=== PATIENT | male | born 1945 | race Caucasian/White ===

== ENCOUNTER 2018-01-29 04:26 | Observation (INO) ==
--- NOTE | 2018-01-29 04:38 | Emergency Department Note ---
Disposition Clinical Impression: Disequilibrium Disposition: Admitted As Inpatient Condition: Fair Referrals: Katrin Mckinley CNP [Primary Care Provider] - Forms: ED Satisfaction Letter Time of Disposition: 06:49 Dizziness HPI - General Chief Complaint: ED Dizziness Stated Complaint: dizziness Time Seen by Provider: 01/29/18 04:37 Source: patient Mode of arrival: ambulatory Limitations: no limitations Nursing Notes Reviewed: Yes Vital Signs Reviewed: Yes - History of Present Illness HPI Narrative: Patient is a 72-year-old male with past medical history of hypertension, hyperlipidemia, migraine. He presents today due to lightheadedness, disequilibrium. He states that last night prior to bed, he felt off balance. He denies any falls, any chest pain, shortness of breath, nausea, vomiting, fevers, diarrhea, abdominal pain, numbness, tingling, weakness, vision changes. Denies any sensation of the room spinning. He says that when he woke up again around 3 this morning, he felt as though he is off balance and teetering side to side. Again, denies any falls. Denies any history of stroke, any history of [place] or cardiac stents. - Related Data Home Medications Medication Instructions Recorded Confirmed Aspirin Enteric Coated [Aspirin EC] 81 mg PO DAILY 09/20/15 11/25/17 Fluticasone Propionate Nasal 1 spray NS DAILY PRN 09/20/15 11/25/17 [Flonase] Insulin Glargine [Lantus] 30 unit SQ HS 09/20/15 11/25/17 Lisinopril [Zestril] 10 mg PO DAILY 09/20/15 11/25/17 NIFEdipine [Nifedipine Xl] 30 mg PO DAILY 09/20/15 11/25/17 Simvastatin [Zocor] 40 mg PO HS 09/20/15 11/25/17 Tamsulosin [Flomax] 0.4 mg PO DAILY 09/20/15 11/25/17 TraMADol [Ultram] 50 mg PO QID 09/20/15 11/25/17 Ferrous Sulfate [Iron] 325 mg PO DAILY 11/25/17 11/25/17 InFLIXimab [Remicade] 100 mg IVPB Q8W 11/25/17 11/25/17 Insulin LISPRO [Humalog] 0 unit SQ AD 11/25/17 11/25/17 [place]-3/Dha/Epa/Fish Oil [Fish Oil 1 cap PO DAILY 11/25/17 11/25/17 1,000 mg Softgel] hydroCHLOROthiazide 6.25 mg PO DAILY 11/25/17 11/25/17 [Hydrochlorothiazide] Allergies Allergy/AdvReac Type Severity Reaction Status Date / Time azathioprine [From Imuran] AdvReac pancreatiti Verified 09/24/15 02:33 s All systems ED: reviewed and negative except as stated. Constitutional: Denies: fever Cardiovascular: Denies: chest pain Respiratory: Denies: cough, dyspnea Gastrointestinal: Denies: abdominal pain, nausea, vomiting, diarrhea Genitourinary: Denies: urgency, dysuria Musculoskeletal: Denies: back pain, neck pain Integumentary: Denies: rash Neurological: Denies: headache, weakness, numbness, paresthesias Past Medical History - Past Medical History Attestation: Yes The following information was validated with the patient. Source: patient Medical history: Reports: diabetes, GERD, hyperlipidemia, hypertension, migraine , other Surgical history: Reports: cholecystectomy, colectomy Psychiatric history: Reports: no psych history - Social History Smoking Status: Former smoker Smokeless Tobacco Status: No Alcohol use: Reports: none Drug use: Reports: none Physical Exam - General Limitations: no limitations General appearance: alert, in no apparent distress - Head Head exam: atraumatic, normocephalic, normal inspection - Eye Eye exam: Present: normal appearance, PERRL, EOMI - ENT ENT exam: normal exam, normal oropharynx, mucous membranes moist - Neck Neck exam: Present: normal inspection, full ROM, trachea midline - Respiratory Respiratory exam: Present: normal lung sounds bilaterally - Cardiovascular Cardiovascular exam: Present: regular rate, normal rhythm, normal heart sounds - Abdominal Exam Abdominal exam: Present: soft, Non-Tender. Absent: tenderness, distention, guarding, rebound, rigidity - Extremities Exam Extremities exam: Present: normal inspection, full ROM. Absent: tenderness, pedal edema - Neurological Exam Neurological exam: Present: alert, oriented X3, CN II-XII intact. Absent: motor sensory deficit - Psychiatric Psychiatric exam: Present: normal affect, normal mood - Skin Skin exam: Present: warm, dry, intact, normal color Course Course Narrative: Patient was probably tachycardic on presentation. Otherwise, rest of vitals within normal limits. Physical exam was benign. Heart regular rate and rhythm , lungs clear to auscultation, abdomen soft and nontender. No focal neurologic deficits. NIH score is 0. We will obtain basic labs, troponin, and chest x-ray , EKG, CT head for further assessment. 06:48 basic labs within normal limits. Troponin negative. EKG shows no acute ST changes. Chest x-ray negative for any acute cardio pulmonary process. Head CT was negative for any acute intracranial abnormality. Patient still having symptoms of disequilibrium despite meclizine given. Currently concern that patient could have cerebellar infarct that is not showing up on head CT. Discussed admission with the patient for further imaging such as MRI and MRA of the neck. He was agreeable with this plan. Head CT 01/29/18 05:08 IMPRESSION: No acute intracranial abnormality. Generalized atrophy. D/ / Cami Bryan MD / Cami Bryan MD Interpreting Provider: Cami Bryan MD Chest X-Ray 01/29/18 05:14 IMPRESSION: No acute process. D/ / Cami Bryan MD / Cami Bryan MD Interpreting Provider: Cami Bryan MD Vital Signs Temperature 97.4 F L 01/29/18 04:28 Pulse Rate 117 01/29/18 04:28 Respiratory Rate 16 01/29/18 04:28 Blood Pressure 155/79 01/29/18 04:28 O2 Sat by Pulse Oximetry 97 01/29/18 04:28 Temperature 97.4 F L 01/29/18 04:28 Pulse Rate 88 01/29/18 06:00 Respiratory Rate 16 01/29/18 04:28 Blood Pressure 148/74 01/29/18 06:00 O2 Sat by Pulse Oximetry 94 01/29/18 06:00 Oxygen Delivery Oxygen Delivery Room Air Dizziness - MDM Narrative Medical decision making narrative: Patient was probably tachycardic on presentation. Otherwise, rest of vitals within normal limits. Physical exam was benign. Heart regular rate and rhythm , lungs clear to auscultation, abdomen soft and nontender. No focal neurologic deficits. NIH score is 0. We will obtain basic labs, troponin, and chest x-ray , EKG, CT head for further assessment. 06:48 basic labs within normal limits. Troponin negative. EKG shows no acute ST changes. Chest x-ray negative for any acute cardio pulmonary process. Head CT was negative for any acute intracranial abnormality. Patient still having symptoms of disequilibrium despite meclizine given. Currently concern that patient could have cerebellar infarct that is not showing up on head CT. Discussed admission with the patient for further imaging such as MRI and MRA of the neck. He was agreeable with this plan. - Medical Records Medical records reviewed: Yes I reviewed the patient's medical records. - Lab Data Lab results reviewed: Yes I reviewed the patient's lab results. Result diagrams: 01/29/18 05:42 01/29/18 05:42 Lab Results 01/29/18 01/29/18 01/29/18 Range/Units 05:42 05:42 06:35 WBC 6.4 (4.3-11.1) K/mcL RBC 4.43 (4.19-5.50) M/mcL Hgb 13.9 (12.9-16.9) g/dL Hct 41.7 (37.5-50.1) % MCV 94.1 (83.0-100.0) fL MCH 31.4 (28.0-33.3) pg MCHC 33.3 (31.6-35.5) g/dL RDW 12.9 (11.5-14.5) % Plt Count 198 (140-400) K/mcL MPV 9.5 (9.4-12.4) fL Immature Gran % 0.5 (0-4) % Seg Neutrophils % 70.4 % Lymphocytes % 17.2 % Monocytes % 7.2 % Eosinophils % 3.8 % Basophils % 0.9 % Neutrophils # 4.5 (1.6-8.9) K/mcL Lymphocytes # 1.1 (0.6-4.6) K/mcL Monocytes # 0.5 (0.0-1.3) K/mcL Eosinophils # 0.2 (0.0-0.6) K/mcL Basophils # 0.1 (0.0-0.2) K/mcL Sodium 135 L (136-145) mEq/L Potassium 3.9 (3.5-5.1) mEq/L Chloride 103 (98-107) mEq/L Carbon Dioxide 28 (23-29) mEq/L BUN 12 (8-23) mg/dL Creatinine 1.12 (0.70-1.30) mg/dL Est GFR ( Amer) > 60 (> 60) Est GFR (Non-Af Amer) > 60 (> 60) BUN/Creatinine Ratio 11 (6-26) Glucose 211 H (70-105) mg/dL Calculated Osmolality 286 (280-300) Calcium 9.0 (8.6-10.3) mg/dL Total Bilirubin 0.5 (0.3-1.0) mg/dL AST 15 (13-39) Units/L ALT 13 (7-52) Units/L Alkaline Phosphatase 35 (34-104) Units/L Troponin I < 0.03 (< 0.04) ng/mL Serum Total Protein 6.5 (6.4-8.9) g/dL Albumin 3.7 (3.5-5.7) g/dL Globulin 2.8 (2.4-3.5) g/dL Albumin/Globulin Ratio 1.3 (1.1-2.2) Urine Color Yellow (Yellow) Urine Clarity Clear (Clear) Urine pH 7.0 (5.0-8.0) pH Units Ur Specific [place] 1.014 (1.010-1.025) Urine Protein Negative (Neg-Trace) mg/dL Urine Glucose (UA) Normal (Normal) mg/dL Urine Ketones Negative (Negative) mg/dL Urine Blood Negative (Negative) Urine Nitrite Negative (Negative) Urine Bilirubin Negative (Negative) Urine Urobilinogen Normal (Normal) mg/dL Ur Leukocyte Esterase Negative (Negative) Ur Culture Indicated? NO (NO) - Radiology Data Radiology results reviewed: Yes I reviewed the patient's radiology results. Head CT 01/29/18 05:08 IMPRESSION: No acute intracranial abnormality. Generalized atrophy. D/ / Cami Bryan MD / Cami Bryan MD Interpreting Provider: Cami Bryan MD Chest X-Ray 01/29/18 05:14 IMPRESSION: No acute process. D/ / Cami Bryan MD / Cami Bryan MD Interpreting Provider: Cami Bryan MD - EKG Data EKG attestation: Yes I reviewed and interpreted this EKG. EKG results narrative: 01/29/2018 at 04:36. Sinus tachycardia. Rate 106. NE 203. QRS 89. QTC 390. Normal axis. No acute ST elevation or depression. S.B.A.R. - S.B.A.R. Situation: Demographics, MOA Background: Presenting Complaint, Relevant PMH, Meds, & Allergies Assessment: Vital Signs, Course and respsone to treatment, Exam Concerns, Patient/Family Expectation, Pertinant Lab Results Recommendation: Barrier(s) to disposition, Recommendation based on pending studies, treatments, or consults
[2018-01-29 05:59] LABS: Basophils # 0.1 K/mcL (0.0-0.2); Basophils % 0.9 %; Eosinophils # 0.2 K/mcL (0.0-0.6); Eosinophils % 3.8 %; Hematocrit 41.7 % (37.5-50.1); Hemoglobin 13.9 g/dL (12.9-16.9); Immature Granulocytes % 0.5 % (0-4); Lymphocytes # 1.1 K/mcL (0.6-4.6); Lymphocytes % 17.2 %; Mean Corpuscular HGB Conc 33.3 g/dL (31.6-35.5); Mean Corpuscular Hemoglobin 31.4 pg (28.0-33.3); Mean Corpuscular Volume 94.1 fL (83.0-100.0); Mean Platelet Volume 9.5 fL (9.4-12.4); Monocytes # 0.5 K/mcL (0.0-1.3); Monocytes % 7.2 %; Neutrophils # 4.5 K/mcL (1.6-8.9); Platelet Count 198 K/mcL (140-400); Red Blood Count 4.43 M/mcL (4.19-5.50); Red Cell Distribution Width 12.9 % (11.5-14.5); Segmented Neutrophils % 70.4 %
--- NOTE | 2018-01-29 06:15 | Emergency Department Note ---
Disposition Clinical Impression: Disequilibrium Disposition: Admitted As Inpatient Condition: Good General Adult HPI - General Chief complaint: ED Dizziness Stated complaint: dizziness Time Seen by Provider: 01/29/18 04:37 Source: patient Mode of arrival: ambulatory Limitations: no limitations - History of Present Illness Pain Scale: 0 - Related Data Home Medications Medication Instructions Recorded Confirmed Aspirin Enteric Coated [Aspirin EC] 81 mg PO DAILY 09/20/15 01/29/18 Fluticasone Propionate Nasal 1 spray NS DAILY PRN 09/20/15 01/29/18 [Flonase] Insulin Glargine [Lantus] 30 unit SQ HS 09/20/15 01/29/18 NIFEdipine [Nifedipine Xl] 30 mg PO DAILY 09/20/15 01/29/18 Simvastatin [Zocor] 40 mg PO HS 09/20/15 01/29/18 TraMADol [Ultram] 50 mg PO QID 09/20/15 01/29/18 Ferrous Sulfate [Iron] 325 mg PO DAILY 11/25/17 01/29/18 InFLIXimab [Remicade] 100 mg IVPB Q8W 11/25/17 01/29/18 Insulin LISPRO [Humalog] 3 - 7 unit SQ TID PRN 11/25/17 01/29/18 [place]-3/Dha/Epa/Fish Oil [Fish Oil 1 cap PO DAILY 11/25/17 01/29/18 1,000 mg Softgel] hydroCHLOROthiazide 6.25 mg PO DAILY 11/25/17 01/29/18 [Hydrochlorothiazide] Lisinopril [Zestril] 20 mg PO DAILY 01/29/18 01/29/18 Previous Rx's Medication Instructions Recorded Terazosin [Hytrin] 1 mg PO HS #30 capsule 01/30/18 Allergies Allergy/AdvReac Type Severity Reaction Status Date / Time azathioprine [From Imuran] AdvReac pancreatiti Verified 02/25/18 13:19 s Constitutional: Denies: fever Cardiovascular: Denies: chest pain Respiratory: Denies: cough, dyspnea Gastrointestinal: Denies: abdominal pain, nausea, vomiting, diarrhea Genitourinary: Denies: urgency, dysuria Musculoskeletal: Denies: back pain, neck pain Integumentary: Denies: rash Neurological: Denies: headache, weakness, numbness, paresthesias Past Medical History - Past Medical History Medical history: Reports: diabetes, GERD, hyperlipidemia, hypertension, migraine , other Surgical history: Reports: cholecystectomy, colectomy Psychiatric history: Reports: no psych history - Social History Smoking Status: Former smoker Smokeless Tobacco Status: No Alcohol use: Reports: none Drug use: Reports: none Physical Exam - General Limitations: no limitations General appearance: alert, in no apparent distress Course Vital Signs Temperature 97.4 F L 01/29/18 04:28 Pulse Rate 117 01/29/18 04:28 Respiratory Rate 16 01/29/18 04:28 Blood Pressure 155/79 01/29/18 04:28 O2 Sat by Pulse Oximetry 97 01/29/18 04:28 Temperature 98.3 F 01/30/18 07:48 Pulse Rate 82 01/30/18 07:48 Respiratory Rate 16 01/30/18 07:48 Blood Pressure 125/68 01/30/18 07:48 O2 Sat by Pulse Oximetry 95 01/30/18 07:48 Oxygen Delivery Oxygen Delivery Room Air Medical Decision Making - Lab Data Result diagrams: 01/30/18 00:30 01/30/18 00:30 Lab Results 01/29/18 01/29/18 01/29/18 Range/Units 05:42 05:42 06:35 WBC 6.4 (4.3-11.1) K/mcL RBC 4.43 (4.19-5.50) M/mcL Hgb 13.9 (12.9-16.9) g/dL Hct 41.7 (37.5-50.1) % MCV 94.1 (83.0-100.0) fL MCH 31.4 (28.0-33.3) pg MCHC 33.3 (31.6-35.5) g/dL RDW 12.9 (11.5-14.5) % Plt Count 198 (140-400) K/mcL MPV 9.5 (9.4-12.4) fL Immature Gran % 0.5 (0-4) % Seg Neutrophils % 70.4 % Lymphocytes % 17.2 % Monocytes % 7.2 % Eosinophils % 3.8 % Basophils % 0.9 % Neutrophils # 4.5 (1.6-8.9) K/mcL Lymphocytes # 1.1 (0.6-4.6) K/mcL Monocytes # 0.5 (0.0-1.3) K/mcL Eosinophils # 0.2 (0.0-0.6) K/mcL Basophils # 0.1 (0.0-0.2) K/mcL Sodium 135 L (136-145) mEq/L Potassium 3.9 (3.5-5.1) mEq/L Chloride 103 (98-107) mEq/L Carbon Dioxide 28 (23-29) mEq/L BUN 12 (8-23) mg/dL Creatinine 1.12 (0.70-1.30) mg/dL Est GFR ( Amer) > 60 (> 60) Est GFR (Non-Af Amer) > 60 (> 60) BUN/Creatinine Ratio 11 (6-26) Glucose 211 H (70-105) mg/dL Est Mean Plasma Glucose mg/dl Hemoglobin A1c ( - 5.6) % Calculated Osmolality 286 (280-300) Calcium 9.0 (8.6-10.3) mg/dL Total Bilirubin 0.5 (0.3-1.0) mg/dL AST 15 (13-39) Units/L ALT 13 (7-52) Units/L Alkaline Phosphatase 35 (34-104) Units/L Troponin I < 0.03 (< 0.04) ng/mL Serum Total Protein 6.5 (6.4-8.9) g/dL Albumin 3.7 (3.5-5.7) g/dL Globulin 2.8 (2.4-3.5) g/dL Albumin/Globulin Ratio 1.3 (1.1-2.2) Urine Color Yellow (Yellow) Urine Clarity Clear (Clear) Urine pH 7.0 (5.0-8.0) pH Units Ur Specific [place] 1.014 (1.010-1.025) Urine Protein Negative (Neg-Trace) mg/dL Urine Glucose (UA) Normal (Normal) mg/dL Urine Ketones Negative (Negative) mg/dL Urine Blood Negative (Negative) Urine Nitrite Negative (Negative) Urine Bilirubin Negative (Negative) Urine Urobilinogen Normal (Normal) mg/dL Ur Leukocyte Esterase Negative (Negative) Ur Culture Indicated? NO (NO) 01/29/18 01/29/18 Range/Units 10:47 10:47 WBC (4.3-11.1) K/mcL RBC (4.19-5.50) M/mcL Hgb (12.9-16.9) g/dL Hct (37.5-50.1) % MCV (83.0-100.0) fL MCH (28.0-33.3) pg MCHC (31.6-35.5) g/dL RDW (11.5-14.5) % Plt Count (140-400) K/mcL MPV (9.4-12.4) fL Immature Gran % (0-4) % Seg Neutrophils % % Lymphocytes % % Monocytes % % Eosinophils % % Basophils % % Neutrophils # (1.6-8.9) K/mcL Lymphocytes # (0.6-4.6) K/mcL Monocytes # (0.0-1.3) K/mcL Eosinophils # (0.0-0.6) K/mcL Basophils # (0.0-0.2) K/mcL Sodium (136-145) mEq/L Potassium (3.5-5.1) mEq/L Chloride (98-107) mEq/L Carbon Dioxide (23-29) mEq/L BUN (8-23) mg/dL Creatinine (0.70-1.30) mg/dL Est GFR ( Amer) (> 60) Est GFR (Non-Af Amer) (> 60) BUN/Creatinine Ratio (6-26) Glucose (70-105) mg/dL Est Mean Plasma Glucose 180 mg/dl Hemoglobin A1c 7.9 H ( - 5.6) % Calculated Osmolality (280-300) Calcium (8.6-10.3) mg/dL Total Bilirubin (0.3-1.0) mg/dL AST (13-39) Units/L ALT (7-52) Units/L Alkaline Phosphatase (34-104) Units/L Troponin I < 0.03 (< 0.04) ng/mL Serum Total Protein (6.4-8.9) g/dL Albumin (3.5-5.7) g/dL Globulin (2.4-3.5) g/dL Albumin/Globulin Ratio (1.1-2.2) Urine Color (Yellow) Urine Clarity (Clear) Urine pH (5.0-8.0) pH Units Ur Specific [place] (1.010-1.025) Urine Protein (Neg-Trace) mg/dL Urine Glucose (UA) (Normal) mg/dL Urine Ketones (Negative) mg/dL Urine Blood (Negative) Urine Nitrite (Negative) Urine Bilirubin (Negative) Urine Urobilinogen (Normal) mg/dL Ur Leukocyte Esterase (Negative) Ur Culture Indicated? (NO) Attestation Statement - Attestation Attestation: I examined this patient and my medical decision-making was reviewed with the Resident Physician. I agree with the documented findings, disposition and treatment plan as described except to the extent set forth below. Findings consistent with dizziness. Findings could represent posterior infarct. Will admit for MRI and further management as well as medical maximization to rule out CVA.
[2018-01-29 06:24] LABS: Alanine Aminotransferase 13 Units/L (7-52); Albumin 3.7 g/dL (3.5-5.7); Albumin/Globulin Ratio 1.3 (1.1-2.2); Alkaline Phosphatase 35 Units/L (34-104); Aspartate Amino Transferase 15 Units/L (13-39); BUN/Creatinine Ratio 11 (6-26); Bilirubin,Total 0.5 mg/dL (0.3-1.0); Blood Urea Nitrogen 12 mg/dL (8-23); Carbon Dioxide 28 mEq/L (23-29); Chloride 103 mEq/L (98-107); Globulin 2.8 g/dL (2.4-3.5); Glucose 211 mg/dL (70-105); Osmolality,Calculated 286 (280-300); Potassium 3.9 mEq/L (3.5-5.1); Sodium 135 mEq/L (136-145); Total Protein 6.5 g/dL (6.4-8.9); Troponin I < 0.03 ng/mL (< 0.04); eGFR For African Americans > 60 (> 60); eGFR For Non-African Americans > 60 (> 60)
[2018-01-29 06:45] LABS: Bilirubin,Urine Negative (Negative); Blood,Urine Negative (Negative); Clarity,Urine Clear (Clear); Color,Urine Yellow (Yellow); Glucose,Urine (UA) Normal (Normal); Ketones,Urine Negative (Negative); Leukocyte Esterase,Urine Negative (Negative); Nitrite,Urine Negative (Negative); Protein,Urine Negative (Neg-Trace); Specific Gravity,Urine 1.014 (1.010-1.025); Urobilinogen,Urine Normal (Normal)
[2018-01-29] MEDS ORDERED: Aspirin 325 MG TABLET PO ONE (06:46)
--- NOTE | 2018-01-29 07:44 | Emergency Department Note ---
Disposition Clinical Impression: Disequilibrium Disposition: Admitted As Inpatient Condition: Fair Referrals: Katrin Mckinley CNP [Primary Care Provider] - Forms: ED Satisfaction Letter General Adult HPI - General Chief complaint: ED Dizziness Stated complaint: dizziness Time Seen by Provider: 01/29/18 04:37 Source: patient Mode of arrival: ambulatory Limitations: no limitations - History of Present Illness Pain Scale: 0 - Related Data Home Medications Medication Instructions Recorded Confirmed Aspirin Enteric Coated [Aspirin EC] 81 mg PO DAILY 09/20/15 11/25/17 Fluticasone Propionate Nasal 1 spray NS DAILY PRN 09/20/15 11/25/17 [Flonase] Insulin Glargine [Lantus] 30 unit SQ HS 09/20/15 11/25/17 Lisinopril [Zestril] 10 mg PO DAILY 09/20/15 11/25/17 NIFEdipine [Nifedipine Xl] 30 mg PO DAILY 09/20/15 11/25/17 Simvastatin [Zocor] 40 mg PO HS 09/20/15 11/25/17 Tamsulosin [Flomax] 0.4 mg PO DAILY 09/20/15 11/25/17 TraMADol [Ultram] 50 mg PO QID 09/20/15 11/25/17 Ferrous Sulfate [Iron] 325 mg PO DAILY 11/25/17 11/25/17 InFLIXimab [Remicade] 100 mg IVPB Q8W 11/25/17 11/25/17 Insulin LISPRO [Humalog] 0 unit SQ AD 11/25/17 11/25/17 [place]-3/Dha/Epa/Fish Oil [Fish Oil 1 cap PO DAILY 11/25/17 11/25/17 1,000 mg Softgel] hydroCHLOROthiazide 6.25 mg PO DAILY 11/25/17 11/25/17 [Hydrochlorothiazide] Allergies Allergy/AdvReac Type Severity Reaction Status Date / Time azathioprine [From Imuran] AdvReac pancreatiti Verified 09/24/15 02:33 s Constitutional: Denies: fever Cardiovascular: Denies: chest pain Respiratory: Denies: cough, dyspnea Gastrointestinal: Denies: abdominal pain, nausea, vomiting, diarrhea Genitourinary: Denies: urgency, dysuria Musculoskeletal: Denies: back pain, neck pain Integumentary: Denies: rash Neurological: Denies: headache, weakness, numbness, paresthesias Past Medical History - Past Medical History Medical history: Reports: diabetes, GERD, hyperlipidemia, hypertension, migraine , other Surgical history: Reports: cholecystectomy, colectomy Psychiatric history: Reports: no psych history - Social History Smoking Status: Former smoker Smokeless Tobacco Status: No Alcohol use: Reports: none Drug use: Reports: none Physical Exam - General Limitations: no limitations General appearance: alert, in no apparent distress Course Vital Signs Temperature 97.4 F L 01/29/18 04:28 Pulse Rate 117 01/29/18 04:28 Respiratory Rate 16 01/29/18 04:28 Blood Pressure 155/79 01/29/18 04:28 O2 Sat by Pulse Oximetry 97 01/29/18 04:28 Temperature 97.4 F L 01/29/18 04:28 Pulse Rate 88 01/29/18 06:00 Respiratory Rate 16 01/29/18 04:28 Blood Pressure 148/74 01/29/18 06:00 O2 Sat by Pulse Oximetry 94 01/29/18 06:00 Oxygen Delivery Oxygen Delivery Room Air Medical Decision Making - Lab Data Result diagrams: 01/29/18 05:42 01/29/18 05:42 Lab Results 01/29/18 01/29/18 01/29/18 Range/Units 05:42 05:42 06:35 WBC 6.4 (4.3-11.1) K/mcL RBC 4.43 (4.19-5.50) M/mcL Hgb 13.9 (12.9-16.9) g/dL Hct 41.7 (37.5-50.1) % MCV 94.1 (83.0-100.0) fL MCH 31.4 (28.0-33.3) pg MCHC 33.3 (31.6-35.5) g/dL RDW 12.9 (11.5-14.5) % Plt Count 198 (140-400) K/mcL MPV 9.5 (9.4-12.4) fL Immature Gran % 0.5 (0-4) % Seg Neutrophils % 70.4 % Lymphocytes % 17.2 % Monocytes % 7.2 % Eosinophils % 3.8 % Basophils % 0.9 % Neutrophils # 4.5 (1.6-8.9) K/mcL Lymphocytes # 1.1 (0.6-4.6) K/mcL Monocytes # 0.5 (0.0-1.3) K/mcL Eosinophils # 0.2 (0.0-0.6) K/mcL Basophils # 0.1 (0.0-0.2) K/mcL Sodium 135 L (136-145) mEq/L Potassium 3.9 (3.5-5.1) mEq/L Chloride 103 (98-107) mEq/L Carbon Dioxide 28 (23-29) mEq/L BUN 12 (8-23) mg/dL Creatinine 1.12 (0.70-1.30) mg/dL Est GFR ( Amer) > 60 (> 60) Est GFR (Non-Af Amer) > 60 (> 60) BUN/Creatinine Ratio 11 (6-26) Glucose 211 H (70-105) mg/dL Calculated Osmolality 286 (280-300) Calcium 9.0 (8.6-10.3) mg/dL Total Bilirubin 0.5 (0.3-1.0) mg/dL AST 15 (13-39) Units/L ALT 13 (7-52) Units/L Alkaline Phosphatase 35 (34-104) Units/L Troponin I < 0.03 (< 0.04) ng/mL Serum Total Protein 6.5 (6.4-8.9) g/dL Albumin 3.7 (3.5-5.7) g/dL Globulin 2.8 (2.4-3.5) g/dL Albumin/Globulin Ratio 1.3 (1.1-2.2) Urine Color Yellow (Yellow) Urine Clarity Clear (Clear) Urine pH 7.0 (5.0-8.0) pH Units Ur Specific [place] 1.014 (1.010-1.025) Urine Protein Negative (Neg-Trace) mg/dL Urine Glucose (UA) Normal (Normal) mg/dL Urine Ketones Negative (Negative) mg/dL Urine Blood Negative (Negative) Urine Nitrite Negative (Negative) Urine Bilirubin Negative (Negative) Urine Urobilinogen Normal (Normal) mg/dL Ur Leukocyte Esterase Negative (Negative) Ur Culture Indicated? NO (NO) Attestation Statement - Attestation Attestation: Care assumed from Dr. Deras at 7 AM pending discussion with the hospitalist for admission. The patient presented with dizziness. I did review the transcribed report of his head CT as well as the labs. He is resting cuff with a tyloma examined complains of ongoing dizziness but appears in no acute distress. The hospitalist accepts for admission
[2018-01-29] MEDS ORDERED: Naloxone 0.4 MG/ML INJ IVP PRN (10:31)
[2018-01-29] MEDS ORDERED: *HR* Dextrose 50 % in Water (Syg) 50 ML SYRINGE IVP PRN (10:31)
[2018-01-29] MEDS ORDERED: Dextrose Gel 15 GM/37.5 ML TUBE PO PRN ×2 (10:31)
[2018-01-29] MEDS ORDERED: D5% in Water 1,000 ML IVC PRN (10:31)
[2018-01-29] MEDS: 0.9 % Sodium Chloride 1,000 ML IVC SCH ×2 (11:35→22:55)
[2018-01-29] MEDS: NIFEdipine XL (24 HR) 30 MG TAB.ER.24 PO SCH (12:23)
[2018-01-29] MEDS: Lisinopril 20 MG TABLET PO SCH (12:23)
[2018-01-29] MEDS: Insulin LISPRO 300 UNITS/3 ML VIAL SQ SCH ×3 (12:36→23:24)
--- NOTE | 2018-01-29 14:57 | Internal Med History&Physical ---
Date of Encounter: 01/29/18 Time of Encounter: 09:15 Internal Medicine - H&P: HPI Chief complaint: Chief complaint of dizziness Admitted From: Home History of present illness: Mr. Ramirez is a 72 year old male has medical history of Crohn's disease and colitis, hyperlipidemia, hypertension, migraine headaches who presented to the emergency room with history of sudden onset lightheadedness which he started noticing about 2 days prior to arrival. He states that the lightheadedness has since progressed and is so severe that he is afraid of getting up and walking. He noticed that suddenly getting up from a sitting position does make him more dizzy and that he has to hold onto things while walking because now he is swaying from [id number]. He denies any fevers or chills or any sick contacts and recent times. Has any nausea or vomiting or poor hydration. He states that over the last several months his exercise tolerance has decreased a little bit but not to a significant concerning degree. He is unaware of any new medications that have been started over the last few weeks. He denies any tingling or numbness or weakness or vision changes of any sort. He denies any sensation of room spinning Does complain of mild headache rated at 2/10 bifrontally without any radiation and without any associated aggravating or relieving factors Past Med Surg Social Fam HX - Past Medical History Medical history: diabetes, GERD, hyperlipidemia, hypertension, other Psychiatric history: no psych history - Past Surgical History Surgical History: cholecystectomy, colectomy - Social History Smoking Status: Former smoker Smokeless Tobacco Status: No Alcohol use: none Drug use: none - Family History Mother Adopted: No Hx Family Cardiac Disorders: No Hx Family Respiratory Disorders: No Hx Family Cancer: No - Additional Family History Additional family history: Complete family history of an acquired and is negative Internal Medicine - H&P: Meds Aspirin Enteric Coated [Aspirin EC] 81 mg PO DAILY 09/20/15 [History] Fluticasone Propionate Nasal [Flonase] 1 spray NS DAILY PRN 09/20/15 [History] Insulin Glargine [Lantus] 30 unit SQ HS 09/20/15 [History] NIFEdipine [Nifedipine Xl] 30 mg PO DAILY 09/20/15 [History] Simvastatin [Zocor] 40 mg PO HS 09/20/15 [History] TraMADol [Ultram] 50 mg PO QID 12/08/15 [History] Ferrous Sulfate [Iron] 325 mg PO DAILY 11/25/17 [History] InFLIXimab [Remicade] 100 mg IVPB Q8W 11/25/17 [History] Insulin LISPRO [Humalog] 3 - 7 unit SQ TID PRN 11/25/17 [History] Jansen-3/Dha/Epa/Fish Oil [Fish Oil 1,000 mg Softgel] 1 cap PO DAILY 11/25/17 [ History] hydroCHLOROthiazide [Hydrochlorothiazide] 6.25 mg PO DAILY 11/25/17 [History] Lisinopril [Zestril] 20 mg PO DAILY 01/29/18 [History] Terazosin HCl 2 mg PO DAILY 01/29/18 [History] 3 Allergy/AdvReac Type Severity Reaction Status Date / Time azathioprine [From Imuran] AdvReac pancreatiti Verified 09/24/15 02:33 s All Systems PM: A 10-system review of systems was performed and is negative for pertinent findings except as documented above in the HPI. - Constitutional Vitals: Temp Pulse Resp BP Pulse Ox 97.8 F 97 18 144/77 97 01/29/18 12:28 01/29/18 12:28 01/29/18 12:28 01/29/18 12:28 01/29/18 12:28 General appearance: Present: mild distress Exam: GENERAL: Alert, moderate distress, cooperative EYES: PERRLA, EOMI EARS: External ears normal, canals clear OROPHARYNX: Lips, mucosa, and tongue normal. Teeth and gums normal. Oropharynx normal. NECK: No jugulovenous distention, No carotid bruits, Carotid pulse normal contour, Supple LUNGS: Lungs clear to auscultation, Good diaphragmatic excursion CARDIAC: Normal S1 and S2; no rubs, murmurs, or gallops ABDOMEN: Abdomen soft, non-tender, BS normal, No masses or organomegaly EXTREMITIES: Extremities normal, no deformities, edema, clubbing or skin discoloration. Good capillary refill., No ulcers NEURO: Gait could not be tested because the patient was significantly symptomatic upon standing up from a lying down position. Reflexes normal and symmetric. Sensation grossly intact, Cranial nerves II-XII intact PULSES: 2+ radial, 2+ carotid Rest of the exam is non contributory Internal Med - H&P Results - Labs CBC & Chem 7: 01/29/18 05:42 01/29/18 05:42 - Assessment and plan (1) Orthostatic dizziness Current Visit: Yes Status: Acute Assessment and plan: Patient was positive for orthostatic hypotension clinically. He could not tolerate standing up for brief seconds and was visibly very dizzy Check orthostatic vitals serially while on the floor. I will give him IV fluids for gentle hydration and follow along. Wondering if his medications are responsible for his ongoing symptoms. Notably , he is on diuresis, tramadol and Terazosin when I look upon his admission medication reconciliation for various complaints . I am going to hold all 3 of them for now until we get his workup going .his CBC does not indicate anemia and he has been taking iron supplements. He also denies ongoing GI bleed issues and follows up very closely with his outpatient providers for his Crohn' s colitis. A CT scan of the head is negative for an acute intracranial bleed. I will check an MRI brain to rule out acute posterior circulation CVA. Placed on telemetry monitoring while on the floor. continue aspirin for the meantime. An EKG was reviewed and he was sinus tachycardic and troponin's were negative (2) DJD (degenerative joint disease) of cervical spine Current Visit: Yes Status: Acute Assessment and plan: Chronic degenerative joint disease. Continue NSAIDs for symptom control for pain. Outpatient physical therapy will be needed upon discharge .avoid opiates and will use muscle relaxants extremely cautiously given his presentation with orthostatic dizziness Qualifiers: Spinal osteoarthritis complication: without myelopathy or radiculopathy Qualified Code(s): M47.812 - Spondylosis without myelopathy or radiculopathy, cervical region (3) HTN, goal below 130/80 Current Visit: Yes Status: Acute Assessment and plan: Blood pressure seems to be stable at this point will continue home medications except for diuresis and continue to monitor closely In fact, clinically he is behaving orthostatic hypotensive. I will put her in formal orthostatic vitals to be checked on the floor (4) Crohn disease Current Visit: Yes Status: Acute Assessment and plan: Stable and does not have active symptoms at this point. Continue to monitor while in-house. He is not anemic Qualifiers: Gastrointestinal tract location: unspecified location Digestive disease complication type: without complication Qualified Code(s): K50.90 - Crohn's disease, unspecified, without complications - Time Spent With Patient Total time spent is greater than 50% in coordination of care (as documented) at patient's floor/unit and/or counseling patient:
[2018-01-29 19:51] LABS: Estimated Average Glucose 180 mg/dl; Hemoglobin A1C 7.9 %
[2018-01-29] MEDS ORDERED: Insulin DETEMIR 100 UNIT/ML X5UNITS SQ SCH (21:00)
[2018-01-30 00:50] LABS: Basophils # 0.1 K/mcL (0.0-0.2); Basophils % 0.7 %; Eosinophils # 0.4 K/mcL (0.0-0.6); Eosinophils % 4.6 %; Hematocrit 38.7 % (37.5-50.1); Hemoglobin 13.1 g/dL (12.9-16.9); Immature Granulocytes % 0.5 % (0-4); Lymphocytes # 1.9 K/mcL (0.6-4.6); Lymphocytes % 23.2 %; Mean Corpuscular HGB Conc 33.9 g/dL (31.6-35.5); Mean Corpuscular Hemoglobin 31.5 pg (28.0-33.3); Mean Platelet Volume 9.5 fL (9.4-12.4); Monocytes # 0.7 K/mcL (0.0-1.3); Monocytes % 8.5 %; Platelet Count 206 K/mcL (140-400); Red Blood Count 4.16 M/mcL (4.19-5.50); Segmented Neutrophils % 62.5 %
[2018-01-30 01:09] LABS: BUN/Creatinine Ratio 11 (6-26); Blood Urea Nitrogen 13 mg/dL (8-23); Calcium 8.5 mg/dL (8.6-10.3); Carbon Dioxide 23 mEq/L (23-29); Chloride 106 mEq/L (98-107); Glucose 207 mg/dL (70-105); Osmolality,Calculated 284 (280-300); Sodium 134 mEq/L (136-145); eGFR For African Americans > 60 (> 60); eGFR For Non-African Americans 60 (> 60)
[2018-01-30] MEDS: Insulin LISPRO 300 UNITS/3 ML VIAL SQ SCH (05:41)
[2018-01-30 07:48] VITALS: BP 125/68
[2018-01-30] MEDS ORDERED: (Omega-3/Dha/Epa/Fish Oil [Fish Oil 1,000 Mg Softgel]) PO SCH (09:00)
[2018-01-30] MEDS ORDERED: Aspirin Enteric Coated 81 MG Tablet PO SCH (09:00)
[2018-01-30] MEDS: Lisinopril 20 MG TABLET PO SCH (09:06)
[2018-01-30] MEDS: NIFEdipine XL (24 HR) 30 MG TAB.ER.24 PO SCH (09:08)
--- NOTE | 2018-01-30 11:21 | Discharge Summary ---
- NOTES TO OUTPATIENT PROVIDER Notes to Outpatient Provider: Patient hospitalized with orthostatic dizziness. Likely due to medications especially terazosin. Recommended decreasing dosage of terazosin. Follow up as outpatient with PCP Date of Encounter: 01/30/18 Time of Encounter: 11:18 - Discharge Diagnosis (1) Orthostatic dizziness Priority: Primary Status: Resolved (2) DJD (degenerative joint disease) of cervical spine Priority: Secondary Status: Acute Qualifiers: Spinal osteoarthritis complication: without myelopathy or radiculopathy Qualified Code(s): M47.812 - Spondylosis without myelopathy or radiculopathy, cervical region (3) HTN, goal below 130/80 Priority: Secondary Status: Acute (4) Crohn disease Priority: Secondary Status: Acute Qualifiers: Gastrointestinal tract location: unspecified location Digestive disease complication type: without complication Qualified Code(s): K50.90 - Crohn's disease, unspecified, without complications Hospital course: Mr. Ramirez is a 72 year old male patient with history of Crohn's disease, hypertension, hyperlipidemia and migraine headaches who was hospitalized here with presyncopal symptoms. He had been started on Terazosin earlier this month. He did not have any focal weakness. She was diagnosed with orthostatic dizziness. He was monitored overnight in the hospital. His symptoms resolved completely after his blood pressure medications were held. He is now doing much better and is stable to go home. His symptoms were most likely related to use of Terazosin as this is the only recent medication change. I recommend decreasing the dose of this medication. He has also been advised about further recommendations to help prevent postural hypotension. He understands this condition and will follow up with his primary care provider for further management. Discharge discussed with: patient, family - Time Spent with Patient Total time spent providing and/or coordinating discharge services: Less than 30 minutes (25 min) - Discharge Medications Prescriptions: Terazosin [Hytrin] 1 mg PO HS #30 capsule Home Medications: Aspirin Enteric Coated [Aspirin EC] 81 mg PO DAILY 09/20/15 [History] Fluticasone Propionate Nasal [Flonase] 1 spray NS DAILY PRN 09/20/15 [History] Insulin Glargine [Lantus] 30 unit SQ HS 09/20/15 [History] NIFEdipine [Nifedipine Xl] 30 mg PO DAILY 09/20/15 [History] Simvastatin [Zocor] 40 mg PO HS 09/20/15 [History] TraMADol [Ultram] 50 mg PO QID 09/20/15 [History] Ferrous Sulfate [Iron] 325 mg PO DAILY 11/25/17 [History] InFLIXimab [Remicade] 100 mg IVPB Q8W 11/25/17 [History] Insulin LISPRO [Humalog] 3 - 7 unit SQ TID PRN 11/25/17 [History] [facility]-3/Dha/Epa/Fish Oil [Fish Oil 1,000 mg Softgel] 1 cap PO DAILY 11/25/17 [ History] hydroCHLOROthiazide [Hydrochlorothiazide] 6.25 mg PO DAILY 11/25/17 [History] Lisinopril [Zestril] 20 mg PO DAILY 01/29/18 [History] Terazosin [Hytrin] 1 mg PO HS #30 capsule 01/30/18 [Rx] Allergies/Adverse Reactions: 3 Allergy/AdvReac Type Severity Reaction Status Date / Time azathioprine [From Imuran] AdvReac pancreatiti Verified 09/24/15 02:33 s Date of admission: 01/29/18 11:30 Primary care physician: Katrin Mckinley CNP Consults: 01/30/18 08:08 Consult to Occupational Therapy [CONS] Routine Comment: Evaluate, develop and implement POC Reason for Consult: DIzziness/ weakness Does patient have active BEDREST order?: No Is patient medically & hemodynamically stable?: Yes Consult to Physical Therapy [CONS] Routine Comment: Evaluate, develop and implement POC Reason for Consult: DIzziness/ weakness Does patient have active BEDREST order?: No Is patient medically & hemodynamically stable?: Yes Discharging clinician: Joaquin Dobbs Anticipated date of discharge: 01/30/18 - Constitutional Vitals: Temp Pulse Resp BP Pulse Ox 98.3 F 82 16 125/68 95 01/30/18 07:48 01/30/18 07:48 01/30/18 07:48 01/30/18 07:48 01/30/18 07:48 General appearance: Present: cooperative, A&O X 3, answers questions appropriately - Neck Neck exam general surgery: Present: supple, trachea midline. Absent: lymphadenopathy - Respiratory Respiratory exam: Present: CTAB. Absent: accessory muscle use, rales, rhonchi, wheezes - Cardiovascular Cardiovascular exam: Present: RRR, +S1, +S2. Absent: diastolic murmur, gallop, rubs, systolic murmur - GI/Abdominal GI/Abdominal exam: Present: normal bowel sounds, soft, no peritoneal signs. Absent: distended, tenderness - Extremities Exam Extremities exam: Present: warm, radial pulses palpable and symmetrical. Absent : calf tenderness, cyanotic, pedal edema - Neurological Exam Neurological exam: Present: CN II-XII intact, oriented X3, no focal deficits. Absent: facial droop, speech deficit - Skin Skin exam: Present: dry, intact - Patient Status Disposition: Home, Self-Care Condition: Good Functional capacity at discharge: independent ambulation Overall status at discharge: patient is progressing back to baseline - Discharge Instructions Follow Up With: Katrin Mckinley CNP [Primary Care Provider] - 02/04/18 10:00 am (in 1-2 weeks) Additional Instructions: Stand up slowly and give your body time to adapt. This is especially important when you get out of bed in the morning. Start by sitting up and waiting a moment. Then swing your legs over the side of the bed and wait some more. When you do stand up, make sure you have something to hold onto in case you start to feel dizzy. Avoid running, hiking, or doing anything that takes a lot of energy in hot weather. These things can make orthostatic hypotension worse. Make sure you drink enough fluids, especially in hot weather. Put blocks under the posts at the head of your bed. This will raise your head above your heart slightly. Wear "compression" stockings. The ones that go to your waist are most helpful. - Diet and Activity Activity: increase activity as tolerated Diet: diabetic diet, low fat, low cholesterol, low salt diet
--- NOTE | 2018-01-31 15:39 | Electrocardiograph Report ---
[place] [id number] Test Date: 2018-01-29 Pat Name: Dieter Ramirez Department: 104 Room: [facility] Gender: M Distribution System Operator: KALEB : 1945 Requested By: Ever Deras Order Number: [id number] Reading MD: Sae Kirkpatrick Measurements Intervals [place] Rate: 106 P: 49 MN: 203 QRS: 23 QRSD: 89 T: 61 QT: 328 QTc: 390 Interpretive Statements SINUS TACHYCARDIA POSSIBLE ANTERIOR MYOCARDIAL INFARCTION, PROBABLY OLD Electronically Signed On 01-31-2018 15:37:16 EDT by Sae Kirkpatrick
== END 2018-01-30 11:50 | disposition home or self-care (01) ==
LOC: SUATTDRO → 2SOUTHHOLD 04:26 → EMEROO 04:26 → 3NENU 11:54
PROVIDERS: ADMIT Internal Medicine; ATTEND Family Medicine

== ENCOUNTER 2019-09-08 07:44 | Observation (INO) ==
[2019-09-08] MEDS ORDERED: 0.9 % Sodium Chloride 1,000 ML IVC ONE (08:07)
[2019-09-08] MEDS ORDERED: Isovue-370 500 ML BOTTLE IVP ONE (08:07)
[2019-09-08] MEDS ORDERED: Ondansetron 4 MG/2 ML VIAL IVP ONE (08:07)
[2019-09-08] MEDS ORDERED: *HR* FentaNYL (PF) 100 MCG/2 ML VIAL IVP ONE (08:07)
[2019-09-08 08:33] LABS: Basophils % 0.4 %; Eosinophils % 0.1 %; Hematocrit 47.7 % (37.5-50.1); Hemoglobin 16.3 g/dL (12.9-16.9); Immature Granulocytes % 0.6 % (0-4); Lymphocytes # 1.2 K/mcL (0.6-4.6); Lymphocytes % 11.1 %; Mean Corpuscular HGB Conc 34.2 g/dL (31.6-35.5); Mean Corpuscular Hemoglobin 31.6 pg (28.0-33.3); Mean Corpuscular Volume 92.4 fL (83.0-100.0); Mean Platelet Volume 9.5 fL (9.4-12.4); Monocytes # 0.6 K/mcL (0.0-1.3); Monocytes % 5.4 %; Neutrophils # 9.1 K/mcL (1.6-8.9); Platelet Count 319 K/mcL (140-400); Red Blood Count 5.16 M/mcL (4.19-5.50); Red Cell Distribution Width 13.3 % (11.5-14.5); Segmented Neutrophils % 82.4 %
[2019-09-08 08:41] LABS: Bilirubin,Urine Negative (Negative); Blood,Urine Negative (Negative); Color,Urine Yellow (Yellow); Glucose,Urine (UA) 100 mg/dL (Normal); Ketones,Urine Trace mg/dL (Negative); Leukocyte Esterase,Urine Negative (Negative); Nitrite,Urine Negative (Negative); Protein,Urine Negative (Neg-Trace); Specific Gravity,Urine 1.017 (1.010-1.025); Urobilinogen,Urine Normal (Normal)
[2019-09-08 08:46] LABS: Bacteria,Urine None Seen per hpf (None-Few); Clarity,Urine Slightly Cloudy (Clear); Hyaline Casts,Urine None Seen per lpf (None-Few); Squamous Epithelial Cell,Urine Few per lpf (None-Few); WBC,Urine 0-3 per hpf (0-3)
[2019-09-08 08:54] LABS: Alanine Aminotransferase 11 Units/L (7-52); Albumin 3.7 g/dL (3.5-5.7); Albumin/Globulin Ratio 1.1 (1.1-2.2); Alkaline Phosphatase 39 Units/L (34-104); Aspartate Amino Transferase 12 Units/L (13-39); BUN/Creatinine Ratio 10 (6-26); Bilirubin,Direct 0.1 mg/dL (0.0-0.2); Bilirubin,Indirect 0.5 mg/dL (0.0-1.0); Bilirubin,Total 0.6 mg/dL (0.3-1.0); Blood Urea Nitrogen 14 mg/dL (8-23); Calcium 9.3 mg/dL (8.6-10.3); Carbon Dioxide 24 mEq/L (23-29); Chloride 100 mEq/L (98-107); Globulin 3.5 g/dL (2.4-3.5); Glucose 296 mg/dL (70-105); Lipase 16 Units/L (11-82); Osmolality,Calculated 289 (280-300); Potassium 4.6 mEq/L (3.5-5.1); Sodium 134 mEq/L (136-145); Total Protein 7.2 g/dL (6.4-8.9); eGFR For African Americans > 60 (> 60); eGFR For Non-African Americans 51 (> 60)
[2019-09-08] MEDS ORDERED: D5% in Water 1,000 ML IVC PRN (12:57)
[2019-09-08] MEDS ORDERED: Dextrose Gel 15 GM/37.5 ML TUBE PO PRN ×2 (12:57)
[2019-09-08] MEDS ORDERED: *HR* Dextrose 50 % in Water (Syg) 50 ML SYRINGE IVP PRN (12:57)
[2019-09-08] MEDS ORDERED: Insulin LISPRO 300 UNITS/3 ML VIAL SQ SCH (13:00)
[2019-09-08] MEDS ORDERED: *HR* Metoprolol 5 MG/5 ML VIAL IVP PRN (13:00)
[2019-09-08] MEDS ORDERED: *HR* FentaNYL (PF) 100 MCG/2 ML VIAL IVP SCH (13:00)
[2019-09-08] MEDS ORDERED: Ondansetron 4 MG/2 ML VIAL IVP PRN (13:01)
[2019-09-08] MEDS ORDERED: Naloxone 0.4 MG/ML INJ IVP PRN (13:01)
[2019-09-08] MEDS ORDERED: *HR* FentaNYL (PF) 100 MCG/2 ML VIAL IVP PRN (13:34)
[2019-09-08] MEDS: 0.9 % Sodium Chloride 1,000 ML IVC SCH (14:43)
[2019-09-08] MEDS: *HR* Heparin 5,000 UNIT/ML VIAL SQ SCH ×2 (14:44→21:15)
[2019-09-08] MEDS: Insulin LISPRO 300 UNITS/3 ML VIAL SQ SCH ×2 (17:33→23:31)
[2019-09-08] MEDS ORDERED: levoFLOXacin 500 MG/100 ML 500 MG/100 ML BAG IVPB SCH (21:00)
[2019-09-08] MEDS: MetroNIDAZOLE 500 MG/100 ML 500 MG/100 ML BAG IVPB SCH (23:30)
[2019-09-09] MEDS: 0.9 % Sodium Chloride 1,000 ML IVC SCH (02:56)
[2019-09-09 05:36] LABS: Basophils # 0.1 K/mcL (0.0-0.2); Eosinophils # 0.2 K/mcL (0.0-0.6); Eosinophils % 2.6 %; Hematocrit 39.9 % (37.5-50.1); Hemoglobin 13.3 g/dL (12.9-16.9); Immature Granulocytes % 0.6 % (0-4); Lymphocytes # 1.9 K/mcL (0.6-4.6); Lymphocytes % 27.2 %; Mean Corpuscular HGB Conc 33.3 g/dL (31.6-35.5); Mean Corpuscular Hemoglobin 31.5 pg (28.0-33.3); Mean Corpuscular Volume 94.5 fL (83.0-100.0); Mean Platelet Volume 9.7 fL (9.4-12.4); Monocytes # 0.7 K/mcL (0.0-1.3); Platelet Count 238 K/mcL (140-400); Red Blood Count 4.22 M/mcL (4.19-5.50); Red Cell Distribution Width 13.7 % (11.5-14.5); Segmented Neutrophils % 58.6 %; White Blood Count 6.8 K/mcL (4.3-11.1)
[2019-09-09 05:50] LABS: BUN/Creatinine Ratio 10 (6-26); Blood Urea Nitrogen 12 mg/dL (8-23); Calcium 8.2 mg/dL (8.6-10.3); Carbon Dioxide 24 mEq/L (23-29); Chloride 108 mEq/L (98-107); Glucose 152 mg/dL (70-105); Osmolality,Calculated 289 (280-300); Potassium 4.3 mEq/L (3.5-5.1); Sodium 138 mEq/L (136-145); eGFR For African Americans > 60 (> 60); eGFR For Non-African Americans > 60 (> 60)
[2019-09-09] MEDS: Insulin LISPRO 300 UNITS/3 ML VIAL SQ SCH ×2 (06:50→12:05)
[2019-09-09] MEDS: MetroNIDAZOLE 500 MG/100 ML 500 MG/100 ML BAG IVPB SCH ×2 (06:50→12:04)
[2019-09-09] MEDS: *HR* Heparin 5,000 UNIT/ML VIAL SQ SCH ×2 (06:50→12:06)
[2019-09-09 07:37] VITALS: BP 124/73
== END 2019-09-09 14:36 | disposition home or self-care (01) ==
LOC: EMEROOARM 07:44 → CDU 07:44 → SUATTDRO 12:31 → CDU 13:00 → 3ANU 14:25
PROVIDERS: ADMIT Family Medicine; ATTEND Internal Medicine

== ENCOUNTER 2022-06-16 08:32 | Observation (INO) ==
[2022-06-16 09:54] LABS: Basophils # 0.1 K/mcL (0.0-0.2); Eosinophils # 0.1 K/mcL (0.0-0.6); Eosinophils % 1.7 %; Hematocrit 40.4 % (37.5-50.1); Hemoglobin 13.4 g/dL (12.9-16.9); Immature Granulocytes % 0.6 % (0-4); Lymphocytes % 12.8 %; Mean Corpuscular HGB Conc 33.2 g/dL (31.6-35.5); Mean Corpuscular Hemoglobin 32.3 pg (28.0-33.3); Mean Corpuscular Volume 97.3 fL (83.0-100.0); Mean Platelet Volume 9.2 fL (9.4-12.4); Monocytes # 0.6 K/mcL (0.0-1.3); Monocytes % 7.1 %; Platelet Count 245 K/mcL (140-400); Red Blood Count 4.15 M/mcL (4.19-5.50); Red Cell Distribution Width 12.8 % (11.5-14.5); Segmented Neutrophils % 76.8 %; White Blood Count 7.9 K/mcL (4.3-11.1)
[2022-06-16 10:05] LABS: Albumin 3.8 g/dL (3.5-5.7); Albumin/Globulin Ratio 1.3 (1.1-2.2); Bilirubin,Direct 0.2 mg/dL (0.0-0.2); Bilirubin,Indirect 0.5 mg/dL (0.0-1.0); Bilirubin,Total 0.7 mg/dL (0.3-1.0); Calcium 9.3 mg/dL (8.6-10.3); Potassium 4.4 mEq/L (3.5-5.1); Total Protein 6.8 g/dL (6.4-8.9)
[2022-06-16] MEDS ORDERED: Ondansetron 4 MG/2 ML VIAL IVP PRN (11:46)
[2022-06-16] MEDS ORDERED: Acetaminophen 325 MG TABLET PO PRN (11:46)
[2022-06-16] MEDS ORDERED: Naloxone 0.4 MG/ML INJ IVP PRN (11:46)
[2022-06-16] MEDS ORDERED: Dextrose Gel 15 GM/37.5 ML TUBE PO PRN ×2 (11:51)
[2022-06-16] MEDS ORDERED: D5% in Water 1,000 ML IVC PRN (11:51)
[2022-06-16] MEDS ORDERED: *HR* Dextrose 50 % in Water (Syg) 50 ML SYRINGE IVP PRN (11:51)
[2022-06-16] MEDS ORDERED: Insulin LISPRO 300 UNITS/3 ML VIAL SUBQ SCH (12:00)
[2022-06-16] MEDS: Pantoprazole 40 MG VIAL IVP SCH ×2 (14:02→20:59)
[2022-06-16] MEDS: 0.9 % Sodium Chloride 1,000 ML IVC SCH (14:02)
[2022-06-16 16:35] LABS: Hematocrit 40.1 % (37.5-50.1); Hemoglobin 13.4 g/dL (12.9-16.9)
[2022-06-16 16:54] LABS: BUN/Creatinine Ratio 12 (6-26); Blood Urea Nitrogen 15 mg/dL (8-23); Calcium 9.1 mg/dL (8.6-10.3); Carbon Dioxide 25 mEq/L (23-29); Chloride 100 mEq/L (98-107); Glucose 129 mg/dL (70-105); Osmolality,Calculated 279 (280-300); Potassium 4.3 mEq/L (3.5-5.1); Sodium 133 mEq/L (136-145)
[2022-06-16] MEDS: Insulin LISPRO 300 UNITS/3 ML VIAL SUBQ SCH ×2 (17:42→20:59)
[2022-06-16 18:41] LABS: C-Reactive Protein < 5 mg/L (Less than 10)
[2022-06-17 00:51] LABS: Hematocrit 35.7 % (37.5-50.1)
[2022-06-17 00:52] LABS: Calcium 8.3 mg/dL (8.6-10.3); Hemoglobin 11.8 g/dL (12.9-16.9); Potassium 4.1 mEq/L (3.5-5.1)
[2022-06-17 02:08] LABS: Adenovirus F 40/41 PCR Not detected (Not detect); Astrovirus PCR Not detected (Not detect); C.difficile Toxin A/B Gene PCR Not detected (Not detect); Campylobacter by PCR Not detected (Not detect); Cryptosporidium by PCR Not detected (Not detect); Cyclospora cayetanensis PCR Not detected (Not detect); Entamoeba histolytica PCR Not detected (Not detect); Enteroaggregative E.coli(EAEC) Not detected (Not detect); Enteropathogenic E.coli(EPEC) Not detected (Not detect); Enterotoxigenic E.coli (ETEC) Not detected (Not detect); Giardia lamblia PCR Not detected (Not detect); Norovirus GI/GII PCR Not detected (Not detect); Plesiomonas shigelloides PCR Not detected (Not detect); Rotavirus A PCR Not detected (Not detect); Salmonella PCR Not detected (Not detect); Sapovirus PCR Not detected (Not detect); Shig/EnteroinvasiveE coli EIEC Not detected (Not detect); Shigalike tox-prod E coli STEC Not detected (Not detect); Vibrio PCR Not detected (Not detect); Vibrio cholerae PCR Not detected (Not detect); Yersinia enterocolitica PCR Not detected (Not detect)
[2022-06-17] MEDS: 0.9 % Sodium Chloride 1,000 ML IVC SCH (02:40)
[2022-06-17 02:45] LABS: Basophils # 0.1 K/mcL (0.0-0.2); Basophils % 1.7 %; Eosinophils # 0.6 K/mcL (0.0-0.6); Eosinophils % 7.5 %; Hematocrit 38.6 % (37.5-50.1); Hemoglobin 12.9 g/dL (12.9-16.9); Immature Granulocytes % 0.4 % (0-4); Lymphocytes # 2.2 K/mcL (0.6-4.6); Lymphocytes % 27.7 %; Mean Corpuscular HGB Conc 33.4 g/dL (31.6-35.5); Mean Corpuscular Hemoglobin 32.4 pg (28.0-33.3); Mean Platelet Volume 9.4 fL (9.4-12.4); Monocytes # 0.7 K/mcL (0.0-1.3); Monocytes % 8.9 %; Neutrophils # 4.2 K/mcL (1.6-8.9); Platelet Count 234 K/mcL (140-400); Red Blood Count 3.98 M/mcL (4.19-5.50); Red Cell Distribution Width 12.9 % (11.5-14.5); Segmented Neutrophils % 53.8 %; White Blood Count 7.8 K/mcL (4.3-11.1)
[2022-06-17 02:54] LABS: Calcium 8.5 mg/dL (8.6-10.3); Potassium 4.4 mEq/L (3.5-5.1)
[2022-06-17] MEDS ORDERED: MethylPREDNISolone 40 MG/ML VIAL IVP SCH (06:00)
[2022-06-17] MEDS: Insulin LISPRO 300 UNITS/3 ML VIAL SUBQ SCH ×4 (08:04→21:45)
[2022-06-17] MEDS: Pantoprazole 40 MG VIAL IVP SCH ×2 (09:09→21:45)
[2022-06-18] MEDS: Insulin LISPRO 300 UNITS/3 ML VIAL SUBQ SCH ×4 (07:29→23:50)
[2022-06-18] MEDS: Pantoprazole 40 MG VIAL IVP SCH ×2 (08:30→21:29)
[2022-06-18] MEDS: Gabapentin 100 MG CAPSULE PO SCH (12:22)
[2022-06-19 03:25] LABS: Basophils # 0.1 K/mcL (0.0-0.2); Basophils % 1.3 %; Eosinophils # 0.2 K/mcL (0.0-0.6); Eosinophils % 3.6 %; Hematocrit 34.7 % (37.5-50.1); Hemoglobin 11.8 g/dL (12.9-16.9); Immature Granulocytes % 0.7 % (0-4); Lymphocytes # 1.7 K/mcL (0.6-4.6); Lymphocytes % 28.3 %; Mean Corpuscular Hemoglobin 32.3 pg (28.0-33.3); Mean Corpuscular Volume 95.1 fL (83.0-100.0); Mean Platelet Volume 9.7 fL (9.4-12.4); Monocytes # 0.7 K/mcL (0.0-1.3); Monocytes % 11.2 %; Neutrophils # 3.4 K/mcL (1.6-8.9); Platelet Count 229 K/mcL (140-400); Red Blood Count 3.65 M/mcL (4.19-5.50); Red Cell Distribution Width 12.6 % (11.5-14.5); Segmented Neutrophils % 54.9 %; White Blood Count 6.1 K/mcL (4.3-11.1)
[2022-06-19 03:43] LABS: Calcium 8.7 mg/dL (8.6-10.3); Potassium 3.9 mEq/L (3.5-5.1)
[2022-06-19] MEDS: Insulin LISPRO 300 UNITS/3 ML VIAL SUBQ SCH ×2 (07:36→11:45)
[2022-06-19] MEDS: Pantoprazole 40 MG VIAL IVP SCH ×2 (07:57→21:38)
[2022-06-19] MEDS: lisinopriL 20 MG TABLET PO SCH (09:23)
[2022-06-19] MEDS: Gabapentin 100 MG CAPSULE PO SCH (09:23)
[2022-06-19] MEDS: NIFEdipine XL (24 HR) 30 MG TAB.ER.24 PO SCH (11:44)
[2022-06-19] MEDS ORDERED: Lidocaine -MPF 2% 5 ML VIAL ONE (12:26)
[2022-06-19] MEDS ORDERED: *HR* Propofol 200 MG/20 ML VIAL IVP ONE (12:27)
[2022-06-19] MEDS ORDERED: Simethicone 40 MG/0.6 ML MLS IR ONE (12:28)
[2022-06-19] MEDS ORDERED: Simethicone 40 MG/0.6 ML MLS ONE (12:30)
[2022-06-20 03:11] LABS: Basophils # 0.1 K/mcL (0.0-0.2); Basophils % 1.5 %; Eosinophils # 0.3 K/mcL (0.0-0.6); Eosinophils % 4.2 %; Hematocrit 31.2 % (37.5-50.1); Hemoglobin 10.6 g/dL (12.9-16.9); Immature Granulocytes % 0.7 % (0-4); Lymphocytes % 31.8 %; Mean Corpuscular Hemoglobin 32.5 pg (28.0-33.3); Mean Corpuscular Volume 95.7 fL (83.0-100.0); Mean Platelet Volume 9.8 fL (9.4-12.4); Monocytes # 0.5 K/mcL (0.0-1.3); Monocytes % 8.8 %; Neutrophils # 3.3 K/mcL (1.6-8.9); Platelet Count 220 K/mcL (140-400); Red Blood Count 3.26 M/mcL (4.19-5.50); Red Cell Distribution Width 12.6 % (11.5-14.5); White Blood Count 6.1 K/mcL (4.3-11.1)
[2022-06-20 03:34] LABS: Calcium 8.1 mg/dL (8.6-10.3); Potassium 3.8 mEq/L (3.5-5.1)
[2022-06-20] MEDS: Insulin LISPRO 300 UNITS/3 ML VIAL SUBQ SCH ×3 (04:17→09:05)
[2022-06-20 07:44] VITALS: BP 127/64; PULSE 84; TEMP 97.6; O2SAT 96
[2022-06-20] MEDS: NIFEdipine XL (24 HR) 30 MG TAB.ER.24 PO SCH (09:03)
[2022-06-20] MEDS: Pantoprazole 40 MG VIAL IVP SCH (09:03)
[2022-06-20] MEDS: lisinopriL 20 MG TABLET PO SCH (09:04)
[2022-06-20] MEDS: Gabapentin 100 MG CAPSULE PO SCH (09:04)
== END 2022-06-20 10:49 | disposition home or self-care (01) ==
LOC: EMEROOARM 08:32 → 3ANU 08:32 → SUATTDRO 12:00 → 3ANU 13:00
PROVIDERS: ADMIT Internal Medicine; ATTEND Internal Medicine
PROC: ENDOCBD (2022-06-19 13:25)